=== PATIENT | female | born 1955 | race African-American/Black ===

== ENCOUNTER 2018-01-11 00:58 | Emergency (ER) | payer MEDICAID ==
[~2018-01-11] VITALS: Ht 172.7 cm; Wt 72.6 kg
[2018-01-11] MEDS ORDERED: SODIUM CHLORIDE 0.9% 1,000 ML IVB ONE (01:34)
[2018-01-11 01:57] LABS: Basophils # (auto) 0 uL; Eosinophils # (auto) 0 uL; Lymphocytes # (auto) 1.8 uL; Nucleated Red Blood Cells % 0.2 %; Red Cell Distribution Width 14.9 % (11.8-14.3)
[2018-01-11 01:58] LABS: Eosinophils % (auto) 1.2 % (0.0-7.0); Hematocrit 41.7 % (36.0-46.0); Hemoglobin 14.1 g/dL (12.2-16.2); Lymphocytes % (auto) 50.6 % (10.0-50.0); Mean Corpuscular Hgb Conc. 33.9 g/dL (32.0-36.0); Mean Corpuscular Volume 100.5 fL (80.0-100.0); Monocytes # (auto) 0.5 uL; Monocytes % (auto) 12.4 % (0.0-12.0); Neutrophils # (auto) 1.3 uL; Neutrophils % (auto) 34.8 % (37.0-80.0); Platelet Count (auto) 115 10^3/uL (140-450); Red Blood Cells 4.15 10^6/uL (4.0-5.20); White Blood Cell 3.6 10^3/uL (4.4-10.8)
[2018-01-11 02:04] LABS: INR 1.16 (0.9-1.15); Partial Thromboplastin Time 32.8 sec (22.64-33.71); Prothrombin Time 12.7 sec (9.37-12.3)
[2018-01-11 02:15] LABS: Alanine Aminotransferase 100 U/L (13-56); Albumin 3.3 g/dL (3.4-5.0); Alkaline Phosphatase 249 U/L (45-117); Anion Gap 9 (5-15); Aspartate Aminotransferase 189 U/L (15-37); BUN/Creatinine Ratio 18.1; Blood Urea Nitrogen 13 mg/dL (7-18); Calcium 8.6 mg/dL (8.5-10.1); Carbon Dioxide 22 mmol/L (21-32); Chloride 109 mmol/L (98-107); GFR African American 106 mL/min; GFR Non-African American 88 mL/min; Glucose 136 mg/dL (74-106); Potassium 4.2 mmol/L (3.5-5.1); Sodium 140 mmol/L (136-145); Total Protein 7.9 g/dL (6.4-8.2)
[2018-01-11] MEDS ORDERED: HYDROcodone-ACET 10/325MG TAB PO ONE (02:30)
[2018-01-11] MEDS ORDERED: SODIUM CHLORIDE 0.9% 1,000 ML IV ONE (05:45)
[2018-01-11 07:35] VITALS: BP 126/63
[2018-01-11] MEDS ORDERED: HYDROcodone-ACET 5/325MG TAB PO ONE ×2 (07:45)
== END 2018-01-11 08:16 | disposition home or self-care (01) ==
LOC: EDBD 00:58 → ER 01:04
DX: R00.2 Palpitations (principal); J45.909 Unspecified asthma, uncomplicated; F17.210 Nicotine dependence, cigarettes, uncomplicated; R07.9 Chest pain, unspecified
CPT/HCPCS: 36415; 71045; 80053; 83735; 83880; 84443; 84484; 85025; 85379; 85610; 85730; 93005; 94761; 99285; J7030

== ENCOUNTER 2018-03-03 17:36 | Emergency (ER) | payer MEDICAID ==
[~2018-03-03] VITALS: Ht 172.7 cm; Wt 59.0 kg
[2018-03-03 18:35] LABS: Basophils # (auto) 0 uL; Basophils % (auto) 0.7 % (0.0-2.0); Eosinophils # (auto) 0 uL; Hemoglobin 16.4 g/dL (12.2-16.2); Monocytes # (auto) 0.6 uL; White Blood Cell 6.6 10^3/uL (4.4-10.8)
[2018-03-03 18:37] LABS: Eosinophils % (auto) 0.3 % (0.0-7.0); Hematocrit 46.6 % (36.0-46.0); Lymphocytes # (auto) 2.5 uL; Lymphocytes % (auto) 38.2 % (10.0-50.0); Mean Corpuscular Hemoglobin 36.1 pg (28.0-32.0); Mean Corpuscular Hgb Conc. 35.1 g/dL (32.0-36.0); Mean Corpuscular Volume 102.7 fL (80.0-100.0); Monocytes % (auto) 8.5 % (0.0-12.0); Neutrophils # (auto) 3.5 uL; Neutrophils % (auto) 52.3 % (37.0-80.0); Nucleated Red Blood Cells % 0.3 %; Platelet Count (auto) 146 10^3/uL (140-450); Red Blood Cells 4.53 10^6/uL (4.0-5.20); Red Cell Distribution Width 14.1 % (11.8-14.3)
[2018-03-03 18:58] LABS: Alanine Aminotransferase 86 U/L (13-56); Albumin 3.7 g/dL (3.4-5.0); Anion Gap 10 (5-15); Aspartate Aminotransferase 102 U/L (15-37); BUN/Creatinine Ratio 14.7; Blood Alcohol < 3.0 mg/dL (0-5); Blood Urea Nitrogen 11 mg/dL (7-18); Calcium 8.8 mg/dL (8.5-10.1); Carbon Dioxide 21 mmol/L (21-32); Chloride 111 mmol/L (98-107); GFR African American 101 mL/min; GFR Non-African American 84 mL/min; Glucose 101 mg/dL (74-106); Potassium 3.7 mmol/L (3.5-5.1); Sodium 142 mmol/L (136-145)
[2018-03-03 19:01] LABS: Alkaline Phosphatase 157 U/L (45-117); Bilirubin, Total 1.2 mg/dL (0.2-1.0)
[2018-03-03 19:46] LABS: Phenytoin (Dilantin) < 0.4 ug/mL (10-20)
[2018-03-03] MEDS ORDERED: PHENYTOIN IV DILANTIN 500 MG in SODIUM CHL 0.9% 100 ML IV ONE (20:00)
[2018-03-03] MEDS ORDERED: PHENYTOIN SODIUM 100 MG CAP PO ONE (20:00)
[2018-03-03] MEDS ORDERED: PHENobarbital SODIUM 130 MG/ML VL IM ONE (20:00)
[2018-03-03 21:38] VITALS: BP 129/89
[2018-03-03 21:57] LABS: Alcohol, Urine < 3.0 mg/dL (0-5); Amphetamine Screen, Urine NEGATIVE (NEGATIVE); Barbiturate Scree,Urine NEGATIVE (NEGATIVE); Benzodiazephine Screen, Urine NEGATIVE (NEGATIVE); Cannabinoid Screen, Urine NEGATIVE (NEGATIVE); Cocaine Screen, Urine POSITIVE (NEGATIVE); Opiate Scree,Urine POSITIVE (NEGATIVE); Phencyclidine Screen, Urine NEGATIVE (NEGATIVE)
== END 2018-03-03 21:58 | disposition home or self-care (01) ==
LOC: ER 17:36 → EDBD 17:36 → ER 21:58
DX: G40.909 Epilepsy, unspecified, not intractable, without status epilepticus (principal); R42 Dizziness and giddiness; G89.29 Other chronic pain; M54.9 Dorsalgia, unspecified; J45.909 Unspecified asthma, uncomplicated; F17.210 Nicotine dependence, cigarettes, uncomplicated
CPT/HCPCS: 36415; 80053; 80184; 80185; 80307; 80320; 85025; 94761; 96365; 96372; 99284; J1165; J2560; J7030

== ENCOUNTER 2018-03-04 10:45 | Inpatient (IN) | payer MEDICAID ==
[~2018-03-04] VITALS: Ht 172.7 cm; Wt 77.0 kg
[2018-03-04] MEDS ORDERED: SODIUM CHLORIDE 0.9% 1,000 ML IV ONE ×2 (11:08)
[2018-03-04] MEDS ORDERED: LORazepam 2MG/ML-1ML VIAL IV ONE (11:15)
[2018-03-04 11:46] LABS: Basophils # (auto) 0 uL; Eosinophils # (auto) 0 uL; Lymphocytes # (auto) 2.9 uL; Monocytes # (auto) 0.6 uL; Neutrophils # (auto) 2.7 uL
[2018-03-04 11:47] LABS: Basophils % (auto) 0.7 % (0.0-2.0); Eosinophils % (auto) 0.4 % (0.0-7.0); Hematocrit 48.9 % (36.0-46.0); Hemoglobin 16.9 g/dL (12.2-16.2); Lymphocytes % (auto) 46.3 % (10.0-50.0); Mean Corpuscular Hemoglobin 35.5 pg (28.0-32.0); Mean Corpuscular Hgb Conc. 34.5 g/dL (32.0-36.0); Monocytes % (auto) 9.2 % (0.0-12.0); Neutrophils % (auto) 43.4 % (37.0-80.0); Nucleated Red Blood Cells % 0.2 %; Platelet Count (auto) 142 10^3/uL (140-450); Red Blood Cells 4.74 10^6/uL (4.0-5.20); Red Cell Distribution Width 14.2 % (11.8-14.3); White Blood Cell 6.3 10^3/uL (4.4-10.8)
[2018-03-04 12:03] LABS: Anion Gap 12 (5-15); Aspartate Aminotransferase 97 U/L (15-37); BUN/Creatinine Ratio 16.7; Blood Alcohol < 3.0 mg/dL (0-5); Blood Urea Nitrogen 12 mg/dL (7-18); Calcium 8.9 mg/dL (8.5-10.1); Carbon Dioxide 21 mmol/L (21-32); Chloride 107 mmol/L (98-107); GFR African American 106 mL/min; GFR Non-African American 88 mL/min; Glucose 106 mg/dL (74-106); Potassium 3.8 mmol/L (3.5-5.1); Sodium 140 mmol/L (136-145)
[2018-03-04 12:09] LABS: Alanine Aminotransferase 83 U/L (13-56); Alkaline Phosphatase 147 U/L (45-117); Bilirubin, Total 1.5 mg/dL (0.2-1.0)
[2018-03-04 12:17] LABS: Valproic Acid (Depakene) < 3.0 ug/mL (50-100)
[2018-03-04] MEDS ORDERED: MORPHINE SULFATE 8mg/ml INJ SDV IV PRN ×2 (18:15)
[2018-03-04] MEDS ORDERED: DOCUSATE SOD 100 MG CAP PO PRN (18:15)
[2018-03-04] MEDS ORDERED: LORazepam 2MG/ML-1ML VIAL IV PRN (18:15)
[2018-03-04] MEDS ORDERED: ACETAMINOPHEN 325 MG TAB PO PRN (18:15)
[2018-03-04] MEDS ORDERED: ONDANSETRON HCL 4 MG/2 ML VIAL IV PRN (18:15)
[2018-03-04] MEDS ORDERED: NITROGLYCERIN 0.4 MG SL TAB SL PRN (18:15)
[2018-03-04 19:06] VITALS: BP 120/74
[2018-03-04 20:30] VITALS: BP 137/73
[2018-03-04 21:01] LABS: Urine Bacteria NONE SEEN /hpf (None Seen); Urine Blood Negative /uL (Negative); Urine Mucus FEW (None Seen); Urine Specific Gravity 1.003 (1.001-1.035); Urine WBC <1 /hpf (0 - 5)
[2018-03-04 22:00] VITALS: BP 137/73
[2018-03-04] MEDS: HYDROcodone-ACET 5/325MG TAB PO PRN (22:58)
[2018-03-04] MEDS: PHENYTOIN SODIUM 100 MG CAP PO SCH (22:58)
[2018-03-04] MEDS: SODIUM CHLOR 0.9% PF (SALINE LOCK) 10ML VIAL/SYR IV SCH (22:58)
[2018-03-04] MEDS: FAMOTIDINE 20 MG TAB PO SCH (22:58)
[2018-03-04] MEDS: PHENobarbital 32.4 MG TAB PO SCH (22:58)
[2018-03-05] MEDS: ALBUTEROL SULF 2.5 MG/0.5ML(0.5%) NEB SOLN NEB SCH ×3 (00:39→14:04)
[2018-03-05] MEDS: HYDROcodone-ACET 5/325MG TAB PO PRN ×3 (00:39→10:42)
[2018-03-05 04:51] VITALS: BP 120/65
[2018-03-05] MEDS: PHENobarbital 32.4 MG TAB PO SCH ×2 (06:22→14:00)
[2018-03-05] MEDS: PHENYTOIN SODIUM 100 MG CAP PO SCH ×2 (06:22→14:00)
[2018-03-05] MEDS: SODIUM CHLOR 0.9% PF (SALINE LOCK) 10ML VIAL/SYR IV SCH ×2 (07:02→14:00)
[2018-03-05 07:13] LABS: Mean Corpuscular Hemoglobin 35.5 pg (28.0-32.0)
[2018-03-05 07:18] LABS: Hematocrit 43.1 % (36.0-46.0); Mean Corpuscular Hgb Conc. 34.8 g/dL (32.0-36.0); Mean Corpuscular Volume 102.1 fL (80.0-100.0); Platelet Count (auto) 132 10^3/uL (140-450); Red Blood Cells 4.22 10^6/uL (4.0-5.20); Red Cell Distribution Width 13.8 % (11.8-14.3); White Blood Cell 6.8 10^3/uL (4.4-10.8)
[2018-03-05 07:19] LABS: Band Neutrophils % (manual) 0; Basophils % (manual) 0 (0.0-2.0); Blast Cells 0; Eosinophils % (manual) 0 (0-7); Metamyelocytes % 0; Myelocytes % 0; Promyelocytes % 0; Reactive Lymphocytes 0
[2018-03-05 07:43] LABS: Albumin 3.5 g/dL (3.4-5.0); BUN/Creatinine Ratio 12.2; Bilirubin, Total 1.3 mg/dL (0.2-1.0); Calcium 8.3 mg/dL (8.5-10.1); Potassium 3.3 mmol/L (3.5-5.1); Total Protein 7.8 g/dL (6.4-8.2)
[2018-03-05 09:00] VITALS: BP 123/75
[2018-03-05] MEDS: FAMOTIDINE 20 MG TAB PO SCH (09:27)
[2018-03-05] MEDS ORDERED: MULTIPLE VITAMIN TAB PO SCH (10:00)
[2018-03-05 11:08] LABS: Lymphocytes % (manual) 71 (10.0-50.0); Monocytes % (manual) 4 (0-12)
[2018-03-05] MEDS ORDERED: PHE100C PO (11:36)
[2018-03-05] MEDS ORDERED: LORazepam 0.5 MG TAB PO ONE (11:45)
[2018-03-05] MEDS ORDERED: HYDROcodone-ACET 5/325MG TAB PO ONE (11:45)
[2018-03-05 13:00] VITALS: BP 123/76
== END 2018-03-05 16:50 | disposition home or self-care (01) | DRG 53 ==
LOC: EDBD 10:45 → ER 10:50 → TELE 10:51 → TELE-CENTR 19:59
PROVIDERS: ADMIT Internal Medicine; ATTEND Internal Medicine
DX: G40.909 Epilepsy, unspecified, not intractable, without status epilepticus (principal); G93.41 Metabolic encephalopathy; D75.1 Secondary polycythemia; F41.9 Anxiety disorder, unspecified; I70.8 Atherosclerosis of other arteries; F17.210 Nicotine dependence, cigarettes, uncomplicated; G89.4 Chronic pain syndrome; J45.909 Unspecified asthma, uncomplicated; Z82.49 Family history of ischemic heart disease and other diseases of the circulatory system; Z83.3 Family history of diabetes mellitus
CPT/HCPCS: 36415; 70450; 71045; 80053; 80164; 80184; 80320; 81001; 83735; 84484; 85007; 85025; 85027; 87081; 93005; 93306; 93886; 94640; 96374

== ENCOUNTER 2018-12-28 18:41 | Emergency (ER) | payer MEDICAID ==
[~2018-12-28] VITALS: Ht 172.7 cm; Wt 71.7 kg
[~2018-12-28 18:41] MED LIST: ALPR0.25 PO; ASPI-498 PO; ATOR20TA PO; HYDR-4683 PO; MET25T PO; PHE100C PO; PHEN32.49 PO
[2018-12-28 18:52] VITALS: BP 168/84
[2018-12-28] MEDS ORDERED: LORazepam 2MG/ML-1ML VIAL IM ONE (19:45)
== END 2018-12-28 20:04 | disposition home or self-care (01) ==
LOC: EDBD 18:41 → ER 18:45
DX: F41.1 Generalized anxiety disorder (principal); J44.9 Chronic obstructive pulmonary disease, unspecified; F17.210 Nicotine dependence, cigarettes, uncomplicated; Z76.0 Encounter for issue of repeat prescription
CPT/HCPCS: 96372; 99283; J2060